=== PATIENT | male | born 1940 | race Caucasian/White ===

== ENCOUNTER 2018-03-11 09:59 | Emergency (ER) | payer OTHER ==
[~2018-03-11] VITALS: Ht 182.9 cm; Wt 79.8 kg
[2018-03-11] MEDS ORDERED: METFORMIN HCL500 MG (10:13)
[2018-03-11] MEDS ORDERED: LEVAQUIN500 MG PO (13:08)
== END 2018-03-11 13:11 | disposition home or self-care (01) ==
LOC: ER 09:59
DX: S01.02XA Laceration with foreign body of scalp, initial encounter (principal); W45.8XXA Other foreign body or object entering through skin, initial encounter; Y93.89 Activity, other specified; Y92.012 Bathroom of single-family (private) house as the place of occurrence of the external cause; Y99.8 Other external cause status

== ENCOUNTER 2021-12-24 12:38 | Emergency (ER) | payer OTHER ==
[~2021-12-24] VITALS: Ht 180.3 cm; Wt 78.0 kg
[~2021-12-24 12:38] MED LIST: LEVAQUIN500 MG PO; METFORMIN HCL500 MG
== END 2021-12-24 16:27 | disposition home or self-care (01) ==
LOC: ER 12:38
DX: M25.511 Pain in right shoulder (principal); G89.11 Acute pain due to trauma

== ENCOUNTER 2021-12-28 14:31 | Emergency (ER) | payer OTHER ==
[~2021-12-28] VITALS: Ht 185.4 cm; Wt 78.5 kg
[2021-12-28] MEDS ORDERED: ENALAPRIL MALEA10 MG (15:23)
== END 2021-12-28 17:34 | disposition home or self-care (01) ==
LOC: ER 14:31
DX: I10 Essential (primary) hypertension (principal); D69.6 Thrombocytopenia, unspecified; S40.211A Abrasion of right shoulder, initial encounter; W19.XXXA Unspecified fall, initial encounter